=== PATIENT | male | born 1965 | race Caucasian/White ===

== ENCOUNTER 2018-03-14 06:19 | Day surgery (SDC) | payer OTHER ==
[2018-03-13 12:29] VITALS: BMI 30.1
[2018-03-14] MEDS ORDERED: MIDAZOLAM HCL 2 MG/2 ML SINGLE DOSE VIAL ONE ×2 (07:17)
[2018-03-14] MEDS ORDERED: SUCCINYLCHOLINE CHLORIDE 200 MG/10 ML VIAL ONE (07:19)
[2018-03-14] MEDS ORDERED: PROPOFOL 20 ML ONE ×2 (07:20→08:08)
[2018-03-14] MEDS ORDERED: LIDOCAINE HCL/PF 2% SDV 5ML VIAL ONE ×2 (07:20→08:22)
[2018-03-14] MEDS ORDERED: DEXAMETHASONE SOD PHOSPHATE 4 MG/1 ML VIAL ONE ×2 (07:21→08:27)
[2018-03-14] MEDS ORDERED: KETOROLAC TROMETHAMINE 30 MG/1 ML VIAL ONE (07:21)
[2018-03-14] MEDS ORDERED: DEXAMETHASONE SOD PHOSPHATE/PF 10 MG/ML SDV ONE (07:30)
[2018-03-14] MEDS ORDERED: BUPIVACAINE HCL/PF 0.5% (5MG/ML) 10 ML VIAL ONE (07:30)
[2018-03-14] MEDS ORDERED: ONDANSETRON 4 MG/2 ML VIAL IVPUSH PRN (07:55)
[2018-03-14] MEDS ORDERED: LACTATED RINGERS SOLUTION 1,000 ML IV SCH (08:00)
--- NOTE | 2018-03-14 08:07 | HP ---
Satellite [facility] - Chief Complaint Chief Complaint: left shoulder pain History Source: Patient - Past Medical History Allergies/Adverse Reactions: Allergies Allergy/AdvReac Type Severity Reaction Status Date / Time No Known Allergies Allergy Verified 03/14/18 06:58 Cardiovascular: Yes: HTN, Hyperlipdemia - Current Medications Current Medications: Home Medications Medication Instructions Recorded Atorvastatin Ca [Lipitor] 10 mg PO HS 01/10/15 Olmesartan Medoxomil [Benicar -] 40 mg PO DAILY 01/10/15 Aspirin Coated [Ecotrin -] 81 mg PO DAILY 03/13/18 Multivit-Min/Iron/Folic/Lutein 1 each PO DAILY 03/13/18 [Centrum Silver Women Tablet] [place]-3 Fatty Acids/Fish Oil [Fish 1 each PO DAILY 03/13/18 Oil 1,000 mg Capsule] Satellite Physical Exam - Physical Examination Vital Signs: Vital Signs Period Temp Pulse Resp BP Sys/Dolan Pulse Ox Last 24 Hr 98.3 F 80 16 119/64 97 Extremities: Other (+ impingement left shoulder with weakness TDA) Satellite Impression/Plan - Impression/Plan Impression: impingement left shoulder +/_ RC tear Operative Procedure: arthroscopy left shoulder with decompression possible RC repair Date to be Performed: 03/14/18
[2018-03-14] MEDS ORDERED: ceFAZolin SODIUM 1 GM VIAL ONE (08:23)
[2018-03-14] MEDS ORDERED: SODIUM CHLORIDE 0.9% P/F 10 ML VIAL IJ ONE (08:23)
[2018-03-14] MEDS ORDERED: ceFAZolin SODIUM 1 GM VIAL IVPB ONE (08:24)
--- NOTE | 2018-03-14 08:44 | OP ---
Operative Note - Note: Operative Date: 03/14/18 ([facility]) Pre-Operative Diagnosis: right shoulder rct Operation: right shoulder arthroscopy with SAD Post-Operative Diagnosis: Same as Pre-op Surgeon: Ruperto Edwards Party Planner: Taj Barker Anesthesiologist/CONFERENCE CENTER MANAGER: Charles Preston Anesthesia: General, Local Specimens Removed: shavings Estimated Blood Loss (mls): 5 Operative Report Dictated: Yes
[2018-03-14 09:34] VITALS: TEMP 97.8
--- NOTE | 2018-03-14 09:37 | OP ---
DATE OF OPERATION: 03/14/2018 PREOPERATIVE DIAGNOSIS: Impingement, left shoulder +/- rotator cuff tear. POSTOPERATIVE DIAGNOSIS: Impingement, left shoulder, with significant humeral head degenerative joint disease. PROCEDURE: Arthroscopy, left shoulder, with subacromial decompression. SURGICAL ATTENDING: Latrell Palomino MD IMMIGRATION LAW SPECIALIST: Ruperto Edwards MD, and RUBINA Alarcon ANESTHESIA: Regional and general. CLOSURE: 3-0 nylon. COMPLICATIONS: None. CONDITION: To recovery room in stable condition. DESCRIPTION OF OPERATIVE PROCEDURE: Patient was taken to the operating room on March 14, 2018. Scalene block as well as general anesthesia was administered by the anesthesiologist. IV Kefzol was administered prophylactically prior to the case. Patient was placed in the beach-chair position with all prominences well padded. Left shoulder area was prepped and draped in the usual sterile fashion. First, a diagnostic arthroscopy of the glenohumeral joint was performed. A posterior portal was made 2 fingerbreadths below the acromion with a 15 blade followed by a blunt trocar. Circumferential examination of the glenohumeral joint revealed the following: Intact glenoid articular cartilage. The humeral head articular cartilage extending from its mid portion posteriorly and inferiorly was denuded of healthy articular cartilage. The anterior and superior portion of the humeral head had good cartilage. There were no loose bodies in the axillary pouch. The labrum was intact circumferentially. The biceps and biceps anchor were intact. Subscapularis was intact to its insertion. The rotator cuff appeared to be intact throughout, as well. Fluid was drained from the glenohumeral joint, and the trocar was removed. The posterior trocar was redirected in the subacromial space. An accessory lateral portal was then made with a 15 blade followed by blunt trocar. A large amount of fibrous bursal tissue was encountered in the subacromial space. This was debrided using the ArthroCare device and the shaver. The coracoacromial ligaments were identified, detached off the anterior acromion, was visualized to drop inferiorly, was further debrided. Shaving of this area revealed a healthy rotator cuff underneath all the way good to its insertion. There was a significant spur anteriorly, and an acromioplasty raising the undersurface of the acromion to a good height was obtained and smoothened to the posterior surface. Range of motion of the head revealed improved clearance of subacromial space post decompression. The fluid was drained from the shoulder. The trocars were removed. The portals were closed using 3-0 nylon. A sterile pressure dressing followed by a sling was applied. Patient awakened from anesthesia and transferred to recovery in stable condition. No complications. Estimated blood loss negligible. Cori VUONG/[id number]
[2018-03-14 10:45] VITALS: BP 114/59; PULSE 67
--- NOTE | 2018-03-15 15:33 | PATH ---
Surgical Pathology Report Patient Name: KVNG BARKLEY [facility]. Rec. #: [id number] /Age/Gender: 1965 (Age: 52) / M Account: [id number] Location: [facility] SURGICAL Taken: 03/14/2018 Received: 03/14/2018 Reported: 03/15/2018 Physicians: Ruperto Edwards M.D. Specimen(s) Received LEFT KNEE SHAVINGS Clinical History Left shoulder tear Final Diagnosis KNEE SHAVINGS, LEFT, ARTHROSCOPY: FRAGMENTS OF CARTILAGE, DENSE FIBROCONNECTIVE TISSUE, ADIPOSE TISSUE, AND SYNOVIUM. Electronically Signed Yue Hall M.D. Gross Description Received in formalin, labeled "left knee shavings," is a 4.3 x 4.1 x 0.4 cm. aggregate of [place]-yellow soft tissue fragments. A health and safety representative portion is submitted in one cassette. /03/14/2018 saudi03/14/2018
== END 2018-03-14 12:00 | disposition home or self-care (01) ==
LOC: JASU-SURG 06:19
PROVIDERS: ATTEND Orthopaedic Surgery
PROC: 0RBK4ZZ Excision of Left Shoulder Joint, Percutaneous Endoscopic Approach (ICD-10-PCS; principal; 2018-03-14 08:00)
DX: M75.42 Impingement syndrome of left shoulder (principal); M19.012 Primary osteoarthritis, left shoulder
CPT/HCPCS: 88304-TC; 94760